=== PATIENT | male | born 2000 | race Caucasian/White ===

== ENCOUNTER 2021-08-12 17:50 | Outpatient (CLI) | payer OTHER | END 2021-08-12 17:51 | disposition critical access hospital (66) | LOC: EMS 17:50 | DX: S01.511A Laceration without foreign body of lip, initial encounter (principal); S02.5XXA Fracture of tooth (traumatic), initial encounter for closed fracture; S60.511A Abrasion of right hand, initial encounter; V14.4XXA Pedal cycle driver injured in collision with heavy transport vehicle or bus in traffic accident, initial encounter; Y93.55 Activity, bike riding; Y92.413 State road as the place of occurrence of the external cause | CPT/HCPCS: A0425; A0429 ==

== ENCOUNTER 2021-08-12 18:11 | Emergency (ER) | payer OTHER ==
[2021-08-12] MEDS ORDERED: MORPHINE 2 MG/ML CARPUJECT IVP STA (18:20)
[2021-08-12] MEDS ORDERED: TETANUS/DIPHTHERIA/PERTUSSIS 0.5 ML SYRINGE IM ONE (18:21)
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
[2021-08-12] MEDS ORDERED: LIDOCAINE 2%-EPI 1:100000 20 ML MDV SUBQ STA (19:47)
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
[2021-08-12] MEDS ORDERED: oxyCODONE/ACET 5/325 Prepack 4 PO STA (21:03)
[2021-08-12] MEDS ORDERED: AMOXICILLIN 250 MG CAPSULE PO STA (21:03)
--- NOTE | 2021-08-12 21:21 | ED Physician Documentation ---
ED Addendum - Addendum Addendum: 08/12/21 21:21 I am prescribing a short course of short-acting opioid pain medication for this patient. I have reviewed the patients [employer] and no concerning findings were noted. I have discussed that the opioids are for short term therapy only, and will not be refilled from the ED 08/13/21 09:13 Received sign out from Dr. Garrett at end of his shift at which time CT and xrays results are pending as well as evaluation in ED by Dr. Gerardo Jordan. right wrist xrays are interpreted by radiologist as "apparent nondisplaced scaphoid waist fracture". a right thumb spica velcro splint is placed for this. 08/13/21 09:22 I removed cervical collar at 19:[address] results available (no acute osseous abnormality). CT maxillofacial bones interpreted as comminuted fracture of anterior maxilla, left upper central incisor fracture, upper lip laceration. Dr. Jordan evaluated patient in ED and performed repair of upper lip laceration. Patient is subsequently discharged with prescriptions for amoxicillin, percocet, and peridex submitted to his pharmacy.
[2021-08-12 21:32] VITALS: BP 143/99
== END 2021-08-12 22:09 | disposition home or self-care (01) ==
LOC: EDUNIT# → ED 18:11
DX: S09.90XA Unspecified injury of head, initial encounter (principal); S02.5XXB Fracture of tooth (traumatic), initial encounter for open fracture; S62.009A Unspecified fracture of navicular [scaphoid] bone of unspecified wrist, initial encounter for closed fracture; S02.401A Maxillary fracture, unspecified side, initial encounter for closed fracture; V03.99XA Pedestrian with other conveyance injured in collision with car, pick-up truck or van, unspecified whether traffic or nontraffic accident, initial encounter; Y93.55 Activity, bike riding; Y92.512 Supermarket, store or market as the place of occurrence of the external cause; Z23 Encounter for immunization
CPT/HCPCS: 70450; 70486; 72125; 73110; 90471; 90715; 96374; 99282; 99284; A9270

== ENCOUNTER 2021-08-29 07:55 | Outpatient (CLI) | payer OTHER, MEDICAID | END 2021-08-29 07:56 | disposition home or self-care (01) | LOC: DI.WOS 07:55 | PROVIDERS: ATTEND Orthopaedic Surgery | DX: Z53.9 Procedure and treatment not carried out, unspecified reason (principal) ==

== ENCOUNTER 2021-08-30 08:39 | Outpatient (CLI) | payer OTHER, MEDICAID ==
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
--- NOTE | 2021-08-30 16:35 | XRAY Report ---
PROCEDURE: Elbow 3 View RT INDICATIONS: ELBOW PAIN TECHNIQUE: 3 views of the elbow were acquired. COMPARISON: None FINDINGS: Bones: No fractures or dislocations. No suspicious bony lesions. Soft tissues: No elbow joint effusion. No suspicious soft tissue calcifications. IMPRESSION: No fracture or acute finding. Reviewed by: Antonio Saunders MD on 08/30/2021 4:34 PM PST Approved by: Antonio Saunders MD on 08/30/2021 4:34 PM PST Station ID: [id number]
== END 2021-08-30 08:40 | disposition home or self-care (01) ==
LOC: DI.WOS 08:39
PROVIDERS: ATTEND Orthopaedic Surgery
DX: S62.001A Unspecified fracture of navicular [scaphoid] bone of right wrist, initial encounter for closed fracture (principal); S52.124A Nondisplaced fracture of head of right radius, initial encounter for closed fracture

== ENCOUNTER 2021-10-10 14:15 | Outpatient (CLI) | payer OTHER, MEDICAID ==
--- NOTE | 2021-10-10 18:05 | XRAY Report ---
PROCEDURE: Wrist 4 View RT INDICATIONS: SCAPHOID FRACTURE TECHNIQUE: 4 views of the wrist were acquired. COMPARISON: 08/30/2010 22 and 08/12/2021. FINDINGS: Bones: No fractures or dislocations. No suspicious bony lesions. Scaphoid view: Scaphoid is intact. Soft tissues: No suspicious soft tissue calcifications. IMPRESSION: No fracture. No osseous lesion. If there are persistent symptoms or continued clinical concern for pa thology, then repeat plain film radiographs (7-10 days) or advanced imaging (CT, MR, bone scan) shoul d be considered for further evaluation. Reviewed by: Miriam Moser MD, PhD on 10/10/2021 6:03 PM PDT Approved by: Miriam Moser MD, PhD on 10/10/2021 6:03 PM PDT Station ID: [id number]
--- NOTE | 2021-10-10 18:16 | XRAY Report ---
PROCEDURE: Elbow 3 View RT INDICATIONS: RADIAL HEAD FRACTURE TECHNIQUE: 3 views of the elbow were acquired. COMPARISON: X-ray of the right elbow, 08/30/2021 FINDINGS: Bones: There is a radial head fracture with mild impaction and angulation. Callus formation consisten t with healing. No suspicious bony lesions. Soft tissues: No elbow joint effusion. No suspicious soft tissue calcifications. IMPRESSION: Healing radial head fracture. Reviewed by: Priscilla Calvin MD on 10/10/2021 6:14 PM PDT Approved by: Priscilla Calvin MD on 10/10/2021 6:14 PM PDT Station ID: [id number]
== END 2021-10-10 23:59 | disposition home or self-care (01) ==
LOC: DI.WOS 14:15
PROVIDERS: ATTEND Orthopaedic Surgery
DX: S62.001A Unspecified fracture of navicular [scaphoid] bone of right wrist, initial encounter for closed fracture (principal); S52.124D Nondisplaced fracture of head of right radius, subsequent encounter for closed fracture with routine healing

== ENCOUNTER 2022-02-17 16:58 | Outpatient (CLI) | payer MEDICAID ==
--- NOTE | 2022-02-17 17:46 | XRAY Report ---
PROCEDURE: Elbow 3 View LT INDICATIONS: UNSPECIFIED INJURY OF RIGHT ELBOW,INITIAL ENCOUNTE TECHNIQUE: 4 views of the elbow were acquired. COMPARISON: None FINDINGS: Bones: No definite acute fractures. No dislocations. No suspicious bony lesions. Soft tissues: There is a moderate-sized anterior elbow joint effusion. No suspicious soft tissue monica cifications. IMPRESSION: Moderate-sized anterior elbow joint effusion without definite underlying fracture. Normal alignment. Possible radiographically occult fracture of the left elbow is suspected. Recommend immobilization an d repeat imaging in 10-14 days. Reviewed by: Acosta Loera MD on 02/17/2022 5:44 PM PDT Approved by: Acosta Loera MD on 02/17/2022 5:44 PM PDT Station ID: [id number]
== END 2022-02-17 16:59 | disposition home or self-care (01) ==
LOC: DI 16:58
PROVIDERS: ATTEND Emergency Medicine
DX: S59.902A Unspecified injury of left elbow, initial encounter (principal); M25.422 Effusion, left elbow